=== PATIENT | female | born 1985 | race Caucasian/White ===

== ENCOUNTER → 2017-04-16 | Emergency (ER) | payer MEDICAID, SELFPAY | PROVIDERS: Family Provider Family Medicine | DX: J06.9 Acute upper respiratory infection, unspecified (principal); Z34.82 Encounter for supervision of other normal pregnancy, second trimester | CPT/HCPCS: 87880 ==

== ENCOUNTER → 2017-05-18 14:13 | Outpatient (CLI) | payer MEDICAID, SELFPAY ==
--- NOTE | 2017-05-18 | US_ITS ---
US OB biophysical profile, US OB follow up, US SD Ratio umbilcal artery: Indication: Large for gestational age ITS.REASON: LGA ORDERING PHYSICIAN: Prashant Betancourt MD PATIENT AGE: 31 years FINDINGS: There is a single live fetus present in breech presentation. Placenta is posterior. Average amniotic fluid volume. respiratory and body movement noted. The following parameters are obtained: Average ultrasound age is 33w0d. Estimated due date by ultrasound is 07/06/2017. Estimated weight is 2025g. This is 28 percentile based on last menstrual period BPD: 32w5d OFD: 34w5d HC: 33w3d AC: 32w5d FL: 32w5d heart rate: 134 bpm. HC/AC: 1.05 (0.96-1.11) Cephalic index: 75% (70-86%) FL/BPD: 78% (71-87%) FL/AC: 22% (20-24%) Amniotic fluid index: 13 cm Qualitative AFV: 2 breathing movements: 2 Gross body movements: 2 Tone: 2 Biophysical profile score: 8/8 Doppler evaluation of the umbilical artery: SD ratio: 3.4 Resistive index: 0.71 No obvious anomalies evident. Placenta: posterior IMPRESSION: Live IUP at 33 weeks with estimated weight of 2025 g which is 28th percentile. The fetus is in breech presentation. Estimated due date is 07/06/2017. There has been adequate progression compared to the previous ultrasound of 02/16/2017. Biophysical profile is 8 of 8 with normal amniotic fluid index. The SD ratio an umbilical artery resistive index is upper limits of normal just below the 95th percentile. The placenta is posterior and grade 1
== END ==
PROVIDERS: Family Provider Family Medicine; PCP Family Medicine; Visit Provider Nurse Practitioner Obstetrics & Gynecology
DX: O36.63X1 Maternal care for excessive fetal growth, third trimester, fetus 1 (principal)
CPT/HCPCS: 76816; 76819; 76820

== ENCOUNTER → 2017-06-06 17:51 | Outpatient (REF) | payer MEDICAID, SELFPAY | LOC: LAB 17:51 | PROVIDERS: Visit Provider Nurse Practitioner Obstetrics & Gynecology | DX: Z34.90 Encounter for supervision of normal pregnancy, unspecified, unspecified trimester (principal) | CPT/HCPCS: 86403; 87086 ==

== ENCOUNTER 2017-06-14 00:13 | Inpatient (IN) | payer MEDICAID, SELFPAY ==
[2017-06-13 22:50] VITALS: BP 160/95; PULSE 80; RESP 18; TEMP 36.8; O2SAT 99
[2017-06-13 22:59] VITALS: BMI 55.5
[2017-06-13 23:00] VITALS: BP 159/89; PULSE 80; RESP 18
[2017-06-13 23:19] VITALS: BP 159/89; PULSE 80; RESP 18; TEMP 36.8; O2SAT 99; BMI 55.5
[2017-06-13 23:28] LABS: Microscopic, Urine URINE MICROSCOPIC (MICROSCOPIC)
[2017-06-13 23:31] LABS: Appearance,Urine CLEAR (Clear); Bilirubin,Urine Negative (Negative); Blood, Urine 1+ (Negative); Color,Urine YELLOW (Yellow); Glucose,Urine (UA) Negative (Negative); Ketones,Urine Negative (Negative); Leukocyte Esterase,Urine Negative (Negative); Nitrate,Urine Negative (Negative); Protein,Urine 3+ (Negative); Urobilinogen,Urine 0.2 EU/dl (0.2)
[2017-06-13 23:46] LABS: Bacteria,Urine 1+ /lpf
[2017-06-13 23:47] LABS: Hyaline Casts,Urine Occasional #/lpf (0)
[2017-06-14] VITALS (23 sets, daily range): BP systolic 134–189; BP diastolic 67–103; PULSE 76–96; RESP 13–20; TEMP 36.3–36.8; O2SAT 96–100
[2017-06-14 00:38] LABS: Basophils % 0.3 % (0.1-2.0); Eosinophils # 0.2 K/mm3 (0.0-0.4); Eosinophils % 1.5 % (0.1-12.0); Hemoglobin 14.5 g/dL (12.2-16.2); Lymphocytes # 2.2 K/mm3 (0.7-4.5); Lymphocytes % 20.8 K/mm3 (10-50); Mean Corpuscular HGB Conc 34.6 g/dL (31.8-35.4); Mean Corpuscular Hemoglobin 31.4 pg (27.0-31.2); Mean Corpuscular Volume 90.8 fl (81-99); Mean Platelet Volume 9.3 fl (7.4-10.4); Monocytes # 0.5 K/mm3 (0.1-1.0); Monocytes % 4.7 % (1.7-9.3); Neutrophils # 7.6 K/mm3 (1.8-7.8); Neutrophils % 72.8 % (37.0-80.0); Platelet Count 173 K/mm3 (142-424); Red Blood Count 4.62 M/mm3 (4.20-5.40); Red Cell Distribution Width 14.2 % (11.5-17.5); White Blood Count 10.5 K/mm3 (4.8-10.8)
[2017-06-14 00:45] LABS: Blood Urea Nitrogen 10 mg/dL (7-18); Carbon Dioxide 25 mmol/L (21.0-32.0); Chloride 103 mmol/L (98-107); Creatinine Clearance Estimated 99 mL/min (0-300); Creatinine,Serum 0.62 mg/dL (0.55-1.02); Estimated Glomerular Filt Rate 112 ml/min (>60); GFR (African American) 136 ML/MIN (>60); Glucose 103 mg/dL (74-106); Sodium 136 mmol/L (136-145)
--- NOTE | 2017-06-14 08:12 | HMH.ANESCL ---
[facility] Anesthesia Checklist - Patient Identification Patient Identification: Arm Band - Structural Data Admitted From: Home Planned Operative Procedure/s: repeat c/s Consent for Planned Operative Procedure(s) Verified: Yes Verified Documents: Surgical Consent, History and Physical - NPO Status Verified Time NPO: 00:00 - Additional verifications Anesthesia Reactions: No - Airway Assessment C-Spine Mobility Assessed: Yes TMJ Mobility Assessed: Yes Dentition: Good Dentition - Neurological Assessment Level of Consciousness: Awake, Alert - Anesthesia Plan Anesthesia Risk discussed: Yes Anesthesia Plan: Verified ASA Class: III Anesthesia Type: Spinal [facility] Anesthesia HX I have reviewed the patient's past medical history: Yes Medical History: Reports:: Hypertension Other Medical History: Reports: Other (morbid obesity) Laterality Cases: Left: Other
--- NOTE | 2017-06-14 08:21 | P.HP_ITS ---
OB - H&P: HPI Antepartum - History of Present Illness Chief complaint: Contractions and increased blood pressure - History of Present Criteria for establishing EDC:: LMP confirmed by 1st trimester US care: good care Ultrasounds: normal 1st trimester US, normal mid trimester US Obstetrical complications: gestational diabetes, preeclampsia Medical complications: none Planning to breastfeed?: No H History I have reviewed the patient's past medical history: Yes Medical History: Reports:: Hypertension Other Medical History: Reports: Other (morbid obesity) Laterality Cases: Left: Other - *Social History Smoking Status: Current every day smoker Alcohol Intake: never Para: 2 Review of Systems - Review of Systems Review of systems:: pertinent systems reviewed and negative unless documented below Meds Home Medications Medication Instructions Recorded Confirmed Type ferrous sulfate 325 mg (65 mg 325 mg PO DAILY tab 05/01/17 06/13/17 History iron) tablet hifsskwl-Bc-ymy-Fe-FA 1 tab PO DAILY 05/01/17 06/14/17 History tablet Labetalol HCl [Normodyne 200mg 100 mg PO BID 06/13/17 06/13/17 History tablet] raNITIdine HCl [Ranitidine HCl] 150 mg PO BID 06/13/17 06/13/17 History Allergies Allergy/AdvReac Type Severity Reaction Status Date / Time No Known Allergies Allergy Verified 06/06/17 10:18 OB - H&P: Exam - Physical Exam Vital signs: Temp Pulse Resp BP Pulse Ox 98.2 F 78 18 178/96 99 06/13/17 23:19 06/14/17 02:00 06/14/17 02:00 06/14/17 02:00 06/13/17 23:19 - Constitutional no acute distress OB - Results - Labs Labs: Short CBC 06/14/17 Range/Units 00:30 WBC 10.5 (4.8-10.8) K/mm3 Hgb 14.5 (12.2-16.2) g/dL Hct 42.0 (37.0-47.0) % Plt Count 173 (142-424) K/mm3 BMP 06/14/17 00:30 Sodium 136 Potassium 4.0 Chloride 103 Carbon Dioxide 25 BUN 10 Creatinine 0.62 Glucose 103 Urine 06/13/17 Range/Units 22:40 Urine Color Yellow (Yellow) Urine Appearance Clear (Clear) Urine pH 7.0 (5.0-8.5) Ur Specific [place] 1.020 (1.005-1.030) Urine Protein 3+ (Negative) Urine Glucose (UA) Negative (Negative) OB - A/P Antepartum (1) induced hypertension Current visit: Yes Status: Acute - Additional Plan Plan: expectant management (She has increased blood pressure and proteinuria. She has had a few lates as well as spontaneous decelerations. As result of that we will go ahead with a at 37 weeks.), other Planning to breastfeed?: Yes
[2017-06-14 09:13] LABS: Cord Blood PH 7.25 (7.35-7.45)
--- NOTE | 2017-06-14 09:53 | HMH.OPNOTE ---
Date of procedure: 06/14/17 Pre-op Diagnosis:: Gestational diabetes, maternal morbid obesity, -induced hypertension, previous section, desire for sterilization Post-op diagnosis:: same Procedure performed:: Repeat lower segment transverse section and bilateral salpingectomy Surgeon:: Prashant Betancourt MD Insurance Special Agent(s):: Lizabeth Joiner CREDIT COLLECTIONS REP:: Vitaliy Foster Anesthesia: spinal Estimated blood loss (mL): 600 Clinical Note:: She is a 31-year-old 3 para 2 obese lady who is 37 weeks just. She has been followed for just Beatties as well as induced hypertension. She was started on labetalol and was having contractions yesterday. She came in last night having contractions. Her blood pressure was found to be in the 180s over 90s-100 and as result of noted on magnesium sulfate overnight as well. She had 3+ proteinuria. She was also having an occasional variable deceleration as well as a late deceleration. As result of that we elected to go ahead and deliver her today. Some benefits of surgery as well as the irreversibility of bilateral salpingectomy were discussed with the patient prior to surgery. Operative findings:: She delivered a liveborn male child at 90 6 AM on the morning of June 06, 2017. The baby had Apgars of 8 at 1 minute and 9 at 5 minutes there is a loose nuchal cord ?1. There was thin meconium. The baby looked quite wasted. Operative note:: She was taken to the operating room where epidural anesthesia was found be adequate. She was prepped and draped in normal sterile fashion in the supine position with a leftward tilt. A Hernandez catheter was in the bladder. A Pfannenstiel skin incision was made with knife then carried through to the underlying layer of fascia with cautery. There was significant subcutaneous scar tissue and the pannus was quite large. The fascia was opened in the midline with cautery and extended laterally using Talbert scissors. Chris clamps were applied to the superior aspect of the fascial incision which was tented up and the underlying rectus muscles dissected off using cautery. The Chris clamps were then applied to the inferior aspect of the fascial incision which in a similar fashion was tented up and the underlying rectus muscles dissected off using cautery. The rectus muscles were then in the midline, the peritoneum identified, and entered sharply with Metzenbaum scissors. This incision was then extended superiorly and inferiorly with cautery. We had good visualization of the bladder inferiorly. The bladder peritoneum was then opened in the midline and extended laterally using Metzenbaum scissors. A bladder flap was created digitally. The lower blade of the Anay was inserted so as to push the bladder out of the way. Transverse incision was made through the uterine muscle to the amnion. This incision was then extended laterally using fingers traction. The amnion was entered sharply with knife. There was thin meconium. The 's head was then delivered atraumatically. Loose nuchal cord was easily reduced. This was followed by the anterior shoulder and the rest of the infant's body atraumatically. The oropharynx and nasopharynx were DeLee suctioned. The was then handed off to her Lancaster who assigned Apgars of 8 at 1 minute and 9 at 5 minutes. We then obtained cord blood as well as cord pH. Using gentle traction on the cord and countertraction on the fundus I was able to easily deliver the placenta intact. It had a normal three-vessel cord. The uterus was then cleared of clots and debris and exteriorized from the abdominal cavity. The uterine incision was then closed using running 0 Vicryl suture in a locked fashion. A second layer of the same suture was used to imbricate the second layer. We then performed a bilateral salpingectomy by first grasping the distal end of the right tube and using cautery we cauterized along the mesial salpinx. The tube was then rem
--- NOTE | 2017-06-14 10:01 | P.OP_ITS ---
Date of procedure: 06/14/17 Pre-op Diagnosis:: Gestational diabetes, maternal morbid obesity, -induced hypertension, previous section, desire for sterilization Post-op diagnosis:: same Procedure performed:: Repeat lower segment transverse section and bilateral salpingectomy Surgeon:: Prashant Betancourt MD Technical Project Manager(s):: Lizabeth Joiner AUTO BODY PAINTER:: Vitaliy Foster Anesthesia: spinal Estimated blood loss (mL): 600 Clinical Note:: She is a 31-year-old 3 para 2 obese lady who is 37 weeks just. She has been followed for just Beatties as well as induced hypertension. She was started on labetalol and was having contractions yesterday. She came in last night having contractions. Her blood pressure was found to be in the 180s over 90s-100 and as result of noted on magnesium sulfate overnight as well. She had 3+ proteinuria. She was also having an occasional variable deceleration as well as a late deceleration. As result of that we elected to go ahead and deliver her today. Some benefits of surgery as well as the irreversibility of bilateral salpingectomy were discussed with the patient prior to surgery. Operative findings:: She delivered a liveborn male child at 90 6 AM on the morning of June 06, 2017. The baby had Apgars of 8 at 1 minute and 9 at 5 minutes there is a loose nuchal cord ?1. There was thin meconium. The baby looked quite wasted. Operative note:: She was taken to the operating room where epidural anesthesia was found be adequate. She was prepped and draped in normal sterile fashion in the supine position with a leftward tilt. A Hernandez catheter was in the bladder. A Pfannenstiel skin incision was made with knife then carried through to the underlying layer of fascia with cautery. There was significant subcutaneous scar tissue and the pannus was quite large. The fascia was opened in the midline with cautery and extended laterally using Talbert scissors. Chris clamps were applied to the superior aspect of the fascial incision which was tented up and the underlying rectus muscles dissected off using cautery. The Chris clamps were then applied to the inferior aspect of the fascial incision which in a similar fashion was tented up and the underlying rectus muscles dissected off using cautery. The rectus muscles were then in the midline, the peritoneum identified, and entered sharply with Metzenbaum scissors. This incision was then extended superiorly and inferiorly with cautery. We had good visualization of the bladder inferiorly. The bladder peritoneum was then opened in the midline and extended laterally using Metzenbaum scissors. A bladder flap was created digitally. The lower blade of the Anay was inserted so as to push the bladder out of the way. Transverse incision was made through the uterine muscle to the amnion. This incision was then extended laterally using fingers traction. The amnion was entered sharply with knife. There was thin meconium. The 's head was then delivered atraumatically. Loose nuchal cord was easily reduced. This was followed by the anterior shoulder and the rest of the infant's body atraumatically. The oropharynx and nasopharynx were DeLee suctioned. The was then handed off to her Lancaster who assigned Apgars of 8 at 1 minute and 9 at 5 minutes. We then obtained cord blood as well as cord pH. Using gentle traction on the cord and countertraction on the fundus I was able to easily deliver the placenta intact. It had a normal three-vessel cord. The uterus was then cleared of clots and debris and exteriorized from the abdominal cavity. The uterine incision was then closed using running 0 Vicryl suture in a locked
--- NOTE | 2017-06-14 10:01 | HMH.ANESI ---
[facility] Anesthesia Record Part I Intake, IV Amount: 1,900 Estimated blood loss (mL): 600 Urine output (mL): 300 Blood Pressure: 146/85 SaO2: 96 Pulse Rate: 89 Respiratory Rate: 16 Temperature: 97.4 F Patient is:: Drowsy, Stable
--- NOTE | 2017-06-14 10:02 | HMH.ANESII ---
[facility] Anesthesia Record Part II Discharge Time: 10:30 Destination: Obstetric PACU nurse assessment reviewed?: Yes Patient Condition:: Good Anesthesia Complications:: None
[2017-06-14 12:11] LABS: Magnesium 1.5 mg/dL (1.4-2.2)
--- NOTE | 2017-06-14 15:16 | SUR.OPER ---
Addendum entered by Liz Rueda RN 06/14/17 15:24: Original Note: 0904- 2 lap sponges inserted at this time per MD into abdomen 0906-viable male born at this time 0924-2 lap sponges removed from abdomen per MD 0929-2 lap sponges inserted into abdomen per 0933-2 lap sponges removed from abdomen per
[2017-06-14 16:22] LABS: Hematocrit 38.2 % (37.0-47.0)
[2017-06-14 16:29] LABS: Hemoglobin 12.9 g/dL (12.2-16.2)
[2017-06-15 07:02] LABS: Basophils % 0.1 % (0.1-2.0); Eosinophils # 0.1 K/mm3 (0.0-0.4); Hematocrit 32.5 % (37.0-47.0); Lymphocytes # 1.3 K/mm3 (0.7-4.5); Mean Corpuscular HGB Conc 34.2 g/dL (31.8-35.4); Mean Corpuscular Hemoglobin 31.3 pg (27.0-31.2); Mean Corpuscular Volume 91.5 fl (81-99); Mean Platelet Volume 8.8 fl (7.4-10.4); Monocytes # 0.4 K/mm3 (0.1-1.0); Monocytes % 4.9 % (1.7-9.3); Neutrophils # 6.9 K/mm3 (1.8-7.8); Platelet Count 158 K/mm3 (142-424); Red Blood Count 3.56 M/mm3 (4.20-5.40); Red Cell Distribution Width 14.4 % (11.5-17.5); White Blood Count 8.7 K/mm3 (4.8-10.8)
[2017-06-15 07:17] LABS: Hemoglobin 11.1 g/dL (12.2-16.2)
[2017-06-15 08:00] VITALS: BP 139/64; PULSE 98; RESP 16; TEMP 36.8; O2SAT 97
--- NOTE | 2017-06-15 08:05 | HMH.ACPN2 ---
Internal Medicine - PN: Subj *Date: 06/15/17 *Time: 08:05 Interval history: She is doing well this morning. She is eating and drinking and ambulating. She is bottlefeeding. Her lochia is normal. Exam Vital signs and Labs for Last 24 Hours: Temp Pulse Resp BP Pulse Ox 98.0 F 96 H 20 146/82 99 06/14/17 17:00 06/14/17 17:00 06/14/17 17:00 06/14/17 17:00 06/14/17 17:00 Laboratory Results - last 24 hr 06/14/17 00:30: Magnesium 1.5 06/14/17 09:05: Cord ABG pH 7.25 L 06/14/17 16:05: Hgb 12.9 D, Hct 38.2 06/15/17 06:32: WBC 8.7, RBC 3.56 L, Hgb 11.1 L D, Hct 32.5 L, MCV 91.5, MCH 31.3 H, MCHC 34.2, RDW 14.4, Plt Count 158, MPV 8.8, Neut % (Auto) 79.0, Lymph % (Auto) 15.0, [place] % (Auto) 4.9, Eos % (Auto) 1.0, Baso % (Auto) 0.1, Neut # (Auto) 6.9, Lymph # (Auto) 1.3, [place] # (Auto) 0.4, Eos # (Auto) 0.1, Baso # (Auto) 0.0 06/15/17 06:32: Magnesium 5.0 H D I & O for Last 24 hours: Intake & Output 06/12/17 06/13/17 06/14/17 06/15/17 11:59 11:59 11:59 11:59 Intake Total 1900 / 1900 Output Total 300 / 300 Balance 1600 / 1600 Weight 294 lb - Constitutional no acute distress Assessment and Plan (1) induced hypertension Current visit: Yes Status: Acute Category: Medical Code(s): O13.9 - Gestational [-induced] hypertension without significant proteinuria, unspecified trimester - Assessment and plan all Dx Assessment and Plan for all problems:: She is doing well today. We will plan to send her home in 48 hours.
--- NOTE | 2017-06-15 12:29 | P.DS_ITS ---
General - General Admission date: 06/13/17 Discharge date: 06/15/17 HPI HPI: She is a 31-year-old 3 now para 3 who was 37 weeks gestational age. She came in having some contractions. It was noted that the baby had some variable decelerations as well as occasional late decelerations. Her blood pressure was also significantly elevated despite the fact that she is on labetalol. She is also a gestational diabetic diet controlled. As result of that we elected to perform a repeat lower segment transverse section. Hospital Course Hospital Course: On June 14, 2017 she underwent a repeat lower segment transverse section and bilateral salpingectomy. She has done well postoperatively and has remained afebrile throughout her hospitalization. Her blood pressures were initially elevated however she was on magnesium sulfate for 24 hours and has also been receiving labetalol 200 mg twice daily. Her blood pressures have now normalized. She denies headache, scotomata or epigastric pain. Her blood work is normal . Slightly anemic. Her baby was quite wasted at delivery consistent with her hypertension and -induced hypertension. He has been having difficulty with breathing although just on oxygen but we have been unable to wean the baby off the oxygen. As result of that he is being transferred to [facility]. We will transfer Shaye as well as a compassionate care transfer. Objective Vital signs: Temp Pulse Resp BP Pulse Ox 98.2 F 98 H 16 139/64 97 06/15/17 08:00 06/15/17 08:00 06/15/17 08:00 06/15/17 08:00 06/15/17 08:00 no acute distress Results Labs on day of discharge: Labs from last 24 hours 06/15/17 06/15/17 06/14/17 06:32 06:32 16:05 WBC 8.7 RBC 3.56 L Hgb 11.1 L D 12.9 D Hct 32.5 L 38.2 MCV 91.5 MCH 31.3 H MCHC 34.2 RDW 14.4 Plt Count 158 MPV 8.8 Neut % (Auto) 79.0 Lymph % (Auto) 15.0 [place] % (Auto) 4.9 Eos % (Auto) 1.0 Baso % (Auto) 0.1 Neut # (Auto) 6.9 Lymph # (Auto) 1.3 [place] # (Auto) 0.4 Eos # (Auto) 0.1 Baso # (Auto) 0.0 Magnesium 5.0 H D DS: Diagnosis - Discharge Diagnosis (1) induced hypertension Status: Acute (2) Gestational diabetes Status: Acute Discharge Plan - Patient Discharge Instructions ACTIVITY: No heavy lifting DIET: continue same diet - Follow up Plan Disposition: Xfer Short-Term Hosp Home Medications: Home Medications Medication Instructions Recorded Confirmed Type ferrous sulfate 325 mg (65 mg 325 mg PO DAILY tab 05/01/17 06/13/17 History iron) tablet mifuvhty-Sb-kic-Fe-FA 1 tab PO DAILY 05/01/17 06/14/17 History tablet Labetalol HCl [Normodyne 200mg 100 mg PO BID 06/13/17 06/13/17 History tablet] raNITIdine HCl [Ranitidine HCl] 150 mg PO BID 06/13/17 06/13/17 History Prescriptions/Medication Reconciliation: Continue ivkxwgnz-Tk-gxi-Fe-FA tablet 1 tab PO DAILY ferrous sulfate 325 mg (65 mg iron) tablet 325 mg PO DAILY tab raNITIdine HCl [Ranitidine HCl] 150 mg PO BID Labetalol HCl [Normodyne 200mg tablet] 100 mg PO BID
[2017-06-15 12:59] VITALS: BP 135/73; PULSE 102; RESP 20; TEMP 36.8; O2SAT 100
== END 2017-06-15 15:20 | disposition short-term general hospital (02) | DRG 765 ==
LOC: OBOUT 00:16 → OB 07:16
PROVIDERS: Obstetrics & Gynecology; Admitting Provider Nurse Practitioner Obstetrics & Gynecology; PCP Family Medicine; Referring Provider Nurse Practitioner Obstetrics & Gynecology; Visit Provider Nurse Practitioner Obstetrics & Gynecology
PROC: 0UL70ZZ Occlusion of Bilateral Fallopian Tubes, Open Approach (ICD-10-PCS; CPT 59514; principal; 2017-06-14 08:30)
DX: O14.04 Mild to moderate pre-eclampsia, complicating childbirth (principal); Z68.43 Body mass index [BMI] 50.0-59.9, adult; E66.01 Morbid (severe) obesity due to excess calories; Z37.0 Single live birth; Z3A.37 37 weeks gestation of pregnancy; O24.429 Gestational diabetes mellitus in childbirth, unspecified control; O65.5 Obstructed labor due to abnormality of maternal pelvic organs; O34.211 Maternal care for low transverse scar from previous cesarean delivery; N85.8 Other specified noninflammatory disorders of uterus; O76 Abnormality in fetal heart rate and rhythm complicating labor and delivery; O99.214 Obesity complicating childbirth
CPT/HCPCS: 59514; 58611; 36415; 59025; 80048; 81001; 82800; 83735; 85014; 85018; 85025; 86850; 96360; 96372

== ENCOUNTER 2017-11-02 03:00 | Observation (INO) ==
[2017-11-02 03:41] LABS: Basophils # 0.1 K/mm3 (0-0.2); Basophils % 0.4 % (0.1-2.0); Eosinophils # 0.1 K/mm3 (0.0-0.4); Hematocrit 43.4 % (37.0-47.0); Hemoglobin 14.4 g/dL (12.2-16.2); Lymphocytes # 1.9 K/mm3 (0.7-4.5); Lymphocytes % 15.8 K/mm3 (10-50); Mean Corpuscular HGB Conc 33.2 g/dL (31.8-35.4); Mean Corpuscular Volume 87.6 fl (81-99); Monocytes # 0.6 K/mm3 (0.1-1.0); Monocytes % 4.9 % (1.7-9.3); Neutrophils # 9.1 K/mm3 (1.8-7.8); Neutrophils % 77.8 % (37.0-80.0); Platelet Count 252 K/mm3 (142-424); Red Blood Count 4.96 M/mm3 (4.20-5.40); Red Cell Distribution Width 14.2 % (11.5-17.5); White Blood Count 11.7 K/mm3 (4.8-10.8)
[2017-11-02 03:53] LABS: Anion Gap 13.8 mEq/L (5-15); Bilirubin,Direct 0.2 mg/dL (0.0-0.2); Bilirubin,Total 1.2 mg/dL (0.2-1.0); C-Reactive Protein 1.7 mg/L (0.0-0.9); Calcium 10.1 mg/dL (8.5-10.1); Potassium 3.8 mmoL/L (3.5-5.1); Total Protein,Serum 8.1 gm/dL (6.4-8.2)
[2017-11-02 04:56] LABS: Microscopic, Urine URINE MICROSCOPIC (MICROSCOPIC)
[2017-11-02 04:57] LABS: Appearance,Urine CLEAR (Clear); Bilirubin,Urine Negative (Negative); Blood, Urine Negative (Negative); Color,Urine YELLOW (Yellow); Glucose,Urine (UA) Negative (Negative); Ketones,Urine Negative (Negative); Leukocyte Esterase,Urine Negative (Negative); Protein,Urine Negative (Negative); Urobilinogen,Urine 0.2 EU/dl (0.2)
--- NOTE | 2017-11-02 04:59 | Emergency Department Note ---
ED Disposition Clinical Impression: Abdominal pain Qualifiers: Abdominal location: right lower quadrant Qualified Code(s): R10.31 - Right lower quadrant pain Cholelithiasis Qualifiers: Cholelithiasis location: gallbladder Cholecystitis presence: without cholecystitis Biliary obstruction: without biliary obstruction Qualified Code(s) : K80.20 - Calculus of gallbladder without cholecystitis without obstruction Disposition: Admitted as Observation Condition on Discharge: Good - Critical Care Critical Care Time: No Attestation: On 11/02/17, the high probability of a clinically significant, sudden or life threatening deterioration of the following system(s) required my full and direct attention, intervention and personal management. The time I documented below is in addition to time spent performing reported procedures but includes the following listed in this critical care notation. Medical Decision Making - Medical Records Medical records reviewed: Yes: I reviewed the patient's medical records. - Sinan Inquiry Pt receiving controlled substance: No Vital Signs: 11/02/17 03:13 Temperature 98.1 F Temperature Source Oral Pulse Rate [Right Radial] 115 H Respiratory Rate 24 Blood Pressure [Right Arm] 130/82 Blood Pressure Mean [Right Arm] 98 Blood Pressure Source [Right Arm] Automatic Cuff Blood Pressure Position [Right Arm] Sitting 02 Sat by Pulse Oximetry 98 Oxygen Delivery Method Room Air - Lab Data Lab results reviewed: Yes: I reviewed the patient's lab results. Lab Results 11/02/17 03:25: Amylase 39 11/02/17 03:25: WBC 11.7 H, RBC 4.96, Hgb 14.4, Hct 43.4, MCV 87.6, MCH 29.0, MCHC 33.2, RDW 14.2, Plt Count 252, MPV 8.0, Neut % (Auto) 77.8, Lymph % (Auto) 15.8, [place] % (Auto) 4.9, Eos % (Auto) 1.0, Baso % (Auto) 0.4, Neut # (Auto) 9.1 H, Lymph # (Auto) 1.9, [place] # (Auto) 0.6, Eos # (Auto) 0.1, Baso # (Auto) 0.1 11/02/17 03:25: Sodium 135 L, Potassium 3.8, Chloride 98, Carbon Dioxide 27, Anion Gap 13.8, BUN 12, Creatinine 1.04 H, Estimated Creat Clear 59, Estimated GFR 61, Est GFR ( Amer) 74, Glucose 156 H, Calcium 10.1, Total Bilirubin 1.2 H, Direct Bilirubin 0.2, Indirect Bilirubin 1.0 H, AST 28, ALT 61, Alkaline Phosphatase 87, C-Reactive Protein 1.7 H, Total Protein 8.1, Albumin 4.0, Lipase 84 11/02/17 03:25: Lactic Acid 2.5 H 11/02/17 03:25: ESR 43 H 11/02/17 04:44: Urine Color Yellow, Urine Appearance Clear, Urine pH 6.0, Ur Specific [place] 1.010, Urine Protein Negative, Urine Glucose (UA) Negative, Urine Ketones Negative, Urine Blood Negative, Urine Nitrate Negative, Urine Bilirubin Negative, Urine Urobilinogen 0.2, Ur Leukocyte Esterase Negative, Urine WBC Occasional, Ur Squamous Epith Cells Occasional, Urine Bacteria Trace Result diagrams: 11/02/17 03:25 11/02/17 03:25 Orders (Tests/Meds): ED MEDICATIONS Discontinued Medications Generic Name Dose Route Start Last Admin Trade Name Kwesi PRN Reason Stop Dose Admin Sodium Chloride 1,000 mls @ 999 mls/hr 11/02/17 03:30 11/02/17 03:27 Sod Chlor 0.9% 1000ml Bag IV 11/02/17 04:30 999 mls/hr .Q1H1M BELEN Administration Ketorolac Tromethamine 30 mg 11/02/17 03:25 11/02/17 03:27 Toradol 30mg/Ml Vial IV 11/02/17 03:26 30 mg ONCE ONE Administration Ondansetron HCl 4 mg 11/02/17 03:25 11/02/17 03:27 Zofran 4mg/2ml Vial IV 11/02/17 03:26 4 mg ONCE ONE Administration ORDERS Category Date Time Status CT abdomen pelvis wo con Stat Cat Scan 11/02/17 03:25 Taken - CT Data CT Scan: Abdomen, Pelvis Time Received: 06:[address] Reviewed: Yes: I have viewed the radiologist's interpretation Preliminary Findings: Abnormal (see report) - Physician Consults Physician Consulted: sarah Reason -: Admission Additional Consult: misha Reason -: Pt condition Nausea/Vomiting/Diarrhea HPI - General Chief complaint: Abdominal Pain Stated complaint: Abdominal Pain and vomiting Time Seen by Provider: 11/02/17 03:15 Mode of Arrival: Ambulatory Source of Information: Patient, Medical Record Limitations: No Limitations Description of Symptoms (Recalled from ER Triage Doc. by RN): umbilical pain, vomiting since 1900, no bm since yesterday afternoon - History of Present Illness HPI Narrative: acute abd pain which is mid abd with nausea and vomiting which started this pm MD complaint: nausea, vomiting, abdominal pain Onset (ago): hour(s) Associated Abdominal Pain: Yes Location of pain: periumbilical, RLQ Severity: moderate Quality: cramping Associated symptoms: denies other symptoms - Related Data Home Medications Medication Instructions Recorded Confirmed No Known Home Medications 11/02/17 11/02/17 Allergies Allergy/AdvReac Type Severity Reaction Status Date / Time No Known Allergies Allergy Verified 06/26/17 10:27 [facility] History I have reviewed the patient's past medical history: Yes Medical History: Reports:: Hypertension Denies:: Anxiety, Cancer, Depression, Diabetes Mellitus Type 1, Diabetes Mellitus Type 2 (gestational), MRSA Other Medical History: Reports: Other Laterality Cases: Left: Other Other Surgeries: Yes: Amputation: No Fractures: No Comment: left eye - Social History Smoking Status: Current every day smoker Tobacco Type: cigarettes # Packs/Day (cigarettes): 1 Alcohol Intake: never Substance Use Type: denies use - Psychiatric History Expresses thoughts of harming self/others: None Suicide Plan Description: No Plan Pschychiatric History:: Denies:: Anxiety, Depression Family Hx:: Cancer, Diabetes, Stroke, Heart Attack, Asthma, Hypertension, Hyperlipidemia ROS Obtained: Yes All systems reviewed & no additional complaints - Constitutional Constitutional: Denies fever(s) - Eyes Eyes: Denies change in vision - ENT Ears, Nose, Mouth, and Throat: Denies sore throat - Cardiovascular Cardiovascular: Denies chest pain - Respiratory Respiratory: No cough - Gastrointestinal Gastrointestingal: Reports: as per HPI, abdominal pain, nausea, vomiting. Denies: diarrhea - Genitourinary Female Genitourinary: Denies hematuria - Musculoskeletal Musculoskeletal: Denies joint pain, Denies joint swelling - Integumentary/Breasts Skin/Breast: Denies rash - Neurologic Neurologic: Denies seizure-like activity Physical Exam - General General appearance: in no apparent distress - Head Head exam: normocephalic - Eye Eye exam: Present: PERRL, EOMI - ENT ENT exam: Present: mucous membranes moist - Neck Neck exam: Present: trachea midline - Respiratory Respiratory exam: Present: normal lung sounds bilaterally. Absent: respiratory distress - Cardiovascular Cardiovascular exam: Present: regular rate. Absent: systolic murmur - Abdominal Exam Abdominal exam: Present: soft, tenderness, tenderness at [place]Bur[place]'s Point Abdominal tenderness: Present: epigastrium - Extremities Exam Extremities exam: Present: full ROM - Neurological Exam Neurological exam: Present: alert, oriented X3, CN II-XII intact - Psychiatric Psychiatric exam: Present: normal affect - Skin Skin exam: Absent: rash
[2017-11-02 05:16] LABS: Bacteria,Urine Trace /lpf; Squamous Epithelial Cell,Urine Occasional #/hpf (0-5); WBC,Urine Occasional #/hpf (0-3)
--- NOTE | 2017-11-02 07:04 | Consult Report ---
*Admission Date: 11/02/17 *Chief complaint: RLQ pain *History of present illness: This is a 32-year-old female seen in consultation from Dr. Jasmine for evaluation regarding possible appendicitis. She presented emergency department with complaints of abdominal pain that initiated in the periumbilical region. The majority of her pain and tenderness migrated to the right lower quadrant. No fevers. Appetite is poor. She was found to have mild leukocytosis and radiographic evidence of possible early appendicitis. The surgical service was consulted. Review of Systems - Constitutional Reports anorexia - Eyes Denies change in vision - *Cardiovascular Denies chest pain - *Respiratory Denies cough - *Gastrointestinal Reports abdominal pain, Reports nausea - *Genitourinary Denies abnormal periods - *Neurologic Denies seizure-like activity - Hematologic/Lymphatic Denies easy bleeding [facility] History Medical History: Reports:: Hypertension Denies:: Anxiety, Cancer, Depression, Diabetes Mellitus Type 1, Diabetes Mellitus Type 2 (gestational), MRSA Other Medical History: Reports: Other Laterality Cases: Left: Other Other Surgeries: Yes: Amputation: No Fractures: No - *Social History Smoking Status: Current every day smoker Tobacco Type: cigarettes # Packs/Day (cigarettes): 1 Alcohol Intake: never Substance Use Type: denies use - Psychiatric History Expresses thoughts of harming self/others: None Suicide Plan Description: No Plan Pschychiatric History:: Denies:: Anxiety, Depression *Family Hx:: Cancer, Diabetes, Stroke, Heart Attack, Asthma, Hypertension, Hyperlipidemia Meds Home Medications Medication Instructions Recorded Confirmed Type No Known Home Medications 11/02/17 11/02/17 History Allergies Allergy/AdvReac Type Severity Reaction Status Date / Time No Known Allergies Allergy Verified 06/26/17 10:27 Exam Vital signs and Labs for Last 24 Hours: Temp Pulse Resp BP Pulse Ox 98.1 F 79 18 143/77 95 11/02/17 06:41 11/02/17 06:41 11/02/17 06:41 11/02/17 06:41 11/02/17 06:41 Laboratory Results - last 24 hr 11/02/17 03:25: Amylase 39 11/02/17 03:25: WBC 11.7 H, RBC 4.96, Hgb 14.4, Hct 43.4, MCV 87.6, MCH 29.0, MCHC 33.2, RDW 14.2, Plt Count 252, MPV 8.0, Neut % (Auto) 77.8, Lymph % (Auto) 15.8, [place] % (Auto) 4.9, Eos % (Auto) 1.0, Baso % (Auto) 0.4, Neut # (Auto) 9.1 H, Lymph # (Auto) 1.9, [place] # (Auto) 0.6, Eos # (Auto) 0.1, Baso # (Auto) 0.1 11/02/17 03:25: Sodium 135 L, Potassium 3.8, Chloride 98, Carbon Dioxide 27, Anion Gap 13.8, BUN 12, Creatinine 1.04 H, Estimated Creat Clear 59, Estimated GFR 61, Est GFR ( Amer) 74, Glucose 156 H, Calcium 10.1, Total Bilirubin 1.2 H, Direct Bilirubin 0.2, Indirect Bilirubin 1.0 H, AST 28, ALT 61, Alkaline Phosphatase 87, C-Reactive Protein 1.7 H, Total Protein 8.1, Albumin 4.0, Lipase 84 11/02/17 03:25: Lactic Acid 2.5 H 11/02/17 03:25: ESR 43 H 11/02/17 04:44: Urine Color Yellow, Urine Appearance Clear, Urine pH 6.0, Ur Specific [place] 1.010, Urine Protein Negative, Urine Glucose (UA) Negative, Urine Ketones Negative, Urine Blood Negative, Urine Nitrate Negative, Urine Bilirubin Negative, Urine Urobilinogen 0.2, Ur Leukocyte Esterase Negative, Urine WBC Occasional, Ur Squamous Epith Cells Occasional, Urine Bacteria Trace I & O for Last 24 hours: Intake & Output 10/30/17 10/31/17 11/01/17 11/02/17 11:59 11:59 11:59 11:59 Weight 270 lb - Constitutional no acute distress - *Routine Cardiovascular Exam Present: RRR - *Routine Abdominal Exam Present: soft, tenderness Comments: RLQ TTP Results - Labs 11/02/17 03:25 11/02/17 03:25 Laboratory Results - last 24 hr 11/02/17 03:25: Amylase 39 11/02/17 03:25: WBC 11.7 H, RBC 4.96, Hgb 14.4, Hct 43.4, MCV 87.6, MCH 29.0, MCHC 33.2, RDW 14.2, Plt Count 252, MPV 8.0, Neut % (Auto) 77.8, Lymph % (Auto) 15.8, [place] % (Auto) 4.9, Eos % (Auto) 1.0, Baso % (Auto) 0.4, Neut # (Auto) 9.1 H, Lymph # (Auto) 1.9, [place] # (Auto) 0.6, Eos # (Auto) 0.1, Baso # (Auto) 0.1 11/02/17 03:25: Sodium 135 L, Potassium 3.8, Chloride 98, Carbon Dioxide 27, Anion Gap 13.8, BUN 12, Creatinine 1.04 H, Estimated Creat Clear 59, Estimated GFR 61, Est GFR ( Amer) 74, Glucose 156 H, Calcium 10.1, Total Bilirubin 1.2 H, Direct Bilirubin 0.2, Indirect Bilirubin 1.0 H, AST 28, ALT 61, Alkaline Phosphatase 87, C-Reactive Protein 1.7 H, Total Protein 8.1, Albumin 4.0, Lipase 84 11/02/17 03:25: Lactic Acid 2.5 H 11/02/17 03:25: ESR 43 H 11/02/17 04:44: Urine Color Yellow, Urine Appearance Clear, Urine pH 6.0, Ur Specific [place] 1.010, Urine Protein Negative, Urine Glucose (UA) Negative, Urine Ketones Negative, Urine Blood Negative, Urine Nitrate Negative, Urine Bilirubin Negative, Urine Urobilinogen 0.2, Ur Leukocyte Esterase Negative, Urine WBC Occasional, Ur Squamous Epith Cells Occasional, Urine Bacteria Trace - Imaging CT scan - abdomen: report reviewed, image reviewed CT scan - pelvis: report reviewed, image reviewed Assessment and Plan (1) Appendicitis Current visit: Yes Status: Acute Category: Surgical Code(s): K37 - Unspecified appendicitis Continue antibiotics Laparoscopic appendectomy-I have discussed the risks and benefits and she agrees to proceed
--- NOTE | 2017-11-02 07:38 | History & Physical Report ---
*Admission Date: 11/02/17 *Chief complaint: Abdominal pain and vomiting *History of present illness: This is a 32-year-old female seen in ER for evaluation of acute onset abdominal pain followed by unrelenting vomiting.. She presented emergency department with complaints of abdominal pain that initiated in the periumbilical region. The majority of her pain and tenderness migrated to the right lower quadrant. No fevers. Appetite is poor. She was found to have mild leukocytosis and radiographic evidence of possible early appendicitis. [facility] History I have reviewed the patient's past medical history: Yes Medical History: Reports:: Hypertension Denies:: Anxiety, Cancer, Depression, Diabetes Mellitus Type 1, Diabetes Mellitus Type 2 (gestational), MRSA Other Medical History: Reports: Other Laterality Cases: Left: Other Other Surgeries: Yes: , Tubal Ligation Amputation: No Fractures: No - *Social History Educational Level: Completed High School Smoking Status: Current every day smoker Tobacco Type: cigarettes # Packs/Day (cigarettes): 1 #Yrs smoked (if former smoker): 15 Alcohol Intake: never Substance Use Type: denies use Occupational Status: unemployed Housing: house Household Members: significant other, children - Psychiatric History Expresses thoughts of harming self/others: None Suicide Plan Description: No Plan Pschychiatric History:: Denies:: Anxiety, Depression *Family Hx:: Cancer, Diabetes, Stroke, Heart Attack, Asthma, Hypertension, Hyperlipidemia Review of Systems - Review of Systems Review of systems:: pertinent systems reviewed and negative unless documented below - *Neurologic Denies seizure-like activity Meds Home Medications Medication Instructions Recorded Confirmed Type No Known Home Medications 11/02/17 11/02/17 History Allergies Allergy/AdvReac Type Severity Reaction Status Date / Time No Known Allergies Allergy Verified 06/26/17 10:27 Exam Vital signs and Labs for Last 24 Hours: Temp Pulse Resp BP Pulse Ox 98.1 F 79 18 143/77 95 11/02/17 06:41 11/02/17 06:41 11/02/17 06:41 11/02/17 06:41 11/02/17 06:41 Laboratory Results - last 24 hr 11/02/17 03:25: Amylase 39 11/02/17 03:25: WBC 11.7 H, RBC 4.96, Hgb 14.4, Hct 43.4, MCV 87.6, MCH 29.0, MCHC 33.2, RDW 14.2, Plt Count 252, MPV 8.0, Neut % (Auto) 77.8, Lymph % (Auto) 15.8, [place] % (Auto) 4.9, Eos % (Auto) 1.0, Baso % (Auto) 0.4, Neut # (Auto) 9.1 H, Lymph # (Auto) 1.9, [place] # (Auto) 0.6, Eos # (Auto) 0.1, Baso # (Auto) 0.1 11/02/17 03:25: Sodium 135 L, Potassium 3.8, Chloride 98, Carbon Dioxide 27, Anion Gap 13.8, BUN 12, Creatinine 1.04 H, Estimated Creat Clear 59, Estimated GFR 61, Est GFR ( Amer) 74, Glucose 156 H, Calcium 10.1, Total Bilirubin 1.2 H, Direct Bilirubin 0.2, Indirect Bilirubin 1.0 H, AST 28, ALT 61, Alkaline Phosphatase 87, C-Reactive Protein 1.7 H, Total Protein 8.1, Albumin 4.0, Lipase 84 11/02/17 03:25: Lactic Acid 2.5 H 11/02/17 03:25: ESR 43 H 11/02/17 04:44: Urine Color Yellow, Urine Appearance Clear, Urine pH 6.0, Ur Specific [place] 1.010, Urine Protein Negative, Urine Glucose (UA) Negative, Urine Ketones Negative, Urine Blood Negative, Urine Nitrate Negative, Urine Bilirubin Negative, Urine Urobilinogen 0.2, Ur Leukocyte Esterase Negative, Urine WBC Occasional, Ur Squamous Epith Cells Occasional, Urine Bacteria Trace I & O for Last 24 hours: Intake & Output 10/30/17 10/31/17 11/01/17 11/02/17 11:59 11:59 11:59 11:59 Weight 270 lb Narrative: Patient is awake alert sitting up in bed and does not appear to be in any pain. HEENT exam is grossly normal. Lungs are clear to auscultation. Heart has a regular rate and rhythm. Abdomen soft with diffuse tenderness but more significant in the right lower quadrant. Patient moves all extremities and has no focal neurologic deficit. H&P: Result - Labs Labs: Short CBC 11/02/17 Range/Units 03:25 WBC 11.7 H (4.8-10.8) K/mm3 Hgb 14.4 (12.2-16.2) g/dL Hct 43.4 (37.0-47.0) % Plt Count 252 (142-424) K/mm3 BMP 11/02/17 03:25 Sodium 135 L Potassium 3.8 Chloride 98 Carbon Dioxide 27 BUN 12 Creatinine 1.04 H Glucose 156 H Calcium 10.1 Liver Function 11/02/17 Range/Units 03:25 Total Bilirubin 1.2 H (0.2-1.0) mg/dL Direct Bilirubin 0.2 (0.0-0.2) mg/dL AST 28 (15-37) U/L ALT 61 (12-78) U/L Alkaline Phosphatase 87 (46-116) U/L Albumin 4.0 (3.4-5.0) gm/dL Urine 11/02/17 Range/Units 04:44 Urine Color Yellow (Yellow) Urine Appearance Clear (Clear) Urine pH 6.0 (5.0-8.5) Ur Specific [place] 1.010 (1.005-1.030) Urine Protein Negative (Negative) Urine Glucose (UA) Negative (Negative) Assessment and Plan (1) Appendicitis Current visit: Yes Status: Acute Category: Surgical Code(s): K37 - Unspecified appendicitis - Assessment and plan all Dx Assessment and Plan for all problems:: Management per Dr. Murray.
--- NOTE | 2017-11-02 07:43 | Pharmacy Consult Notes ---
[facility] Pharmacy VTE Monitoring - Patient Demographics Admission date: 11/02/17 Report Date: 11/02/17 Time: 07:43 Allergies/Adverse Reactions: Patient Allergies No Known Allergies Allergy (Verified 06/26/17 10:27) Height: 1.55 m Weight: 122.47 kg Patient Problems: Current Active Problems Abdominal pain (Acute) Cholelithiasis (Acute) Appendicitis (Acute) - VTE Risk Labs: VTE Related Lab Results Hgb 14.4 g/dL (12.2-16.2) 11/02/17 03:25 Hct 43.4 % (37.0-47.0) 11/02/17 03:25 Plt Count 252 K/mm3 (142-424) 11/02/17 03:25 BUN 12 mg/dL (7-18) 11/02/17 03:25 Creatinine 1.04 mg/dL (0.55-1.02) H 11/02/17 03:25 Estimated Creat Clear 59 mL/min (0-300) 11/02/17 03:25 Was VTE Risk Assessment Performed: No VTE Score: 2 VTE Risk Level: Very Low Risk - Prophylaxis VTE Prophylaxis Ordered?: Yes Types of VTE Prophylaxis: TEDS Knee High Location of Applied Device: Bilateral Lower Extremeties - VTE Diagnosis Confirmed Treatment or plan recommended: Continue Current Treatment
--- NOTE | 2017-11-02 14:32 | Operative Note ---
Date of procedure: 11/02/17 Pre-op Diagnosis:: Appendicitis Post-op Diagnosis:: Same Procedure performed:: Laparoscopic appendectomy Surgeon:: David Dumont MD Anesthesia: GETA Estimated blood loss (mL): 15 Operative findings:: Incisional hernias just to the left and just below the umbilicus Severe adhesions of omentum to anterior abdominal wall Inflamed/enlarged appendix with no sign of perforation or suppuration Operative note:: After informed consent was obtained, the patient was taken to the operating room and placed in the supine position. General anesthesia was induced and her abdomen was prepped and draped in a sterile fashion. After infiltration with local anesthetic a small incision was made just below the umbilicus. A Veress needle was placed in position; however, release of tension was not obtained and the decision was made to forego multiple attempts at this site. A small stab incision was made in the left upper quadrant. The Veress needle was placed in position. The abdomen was insufflated. A 12 mm optical trocar was utilized to enter at the infraumbilical site. A second 5 mm trocar was placed in the left upper quadrant. Dense adhesions of the omentum along the anterior abdominal wall are noted. The adhesions essentially started at the infraumbilical entry site and proceeded throughout the lower abdomen/pelvis. Blunt dissection was utilized to take down these adhesions. A 5 mm trochars placed in the lower left flank and a 5 mm trocar was placed in the suprapubic position. Evaluation also revealed a "[place] cheese" defect just to the left and to the left/below the umbilicus (prior incision). The appendix was carefully elevated. The appendix was enlarged and inflamed, but no sign of perforation or suppuration noted. A window was made in the mesoappendix at the base. A DUC stapler was utilized to take the appendix at the base. The DUC stapler was also utilized to take the mesoappendix. The appendix was placed in a retrieval bag and removed through the infraumbilical trocar site. The right lower quadrant was thoroughly irrigated. No active bleeding or sign of injury was noted. Fascia at the infraumbilical trocar site was reapproximated utilizing the madina-close device. All wounds were irrigated and skin was closed with 4-0 Monocryl in a subcuticular fashion. Dressings were applied. The patient was transferred to recovery in stable condition after extubation. Condition: stable Disposition: PACU Specimens:: Appendix Complications:: No immediate
--- NOTE | 2017-11-02 14:39 | Progress Note ---
[facility] Anesthesia Record Part II Discharge Time: 15:05 Destination: 2nd floor PACU nurse assessment reviewed?: Yes Patient Condition:: Good Anesthesia Complications:: None
--- NOTE | 2017-11-02 14:39 | Progress Note ---
[facility] Anesthesia Checklist - Patient Identification Patient Identification: Arm Band - Structural Data Admitted From: Home Planned Operative Procedure/s: laparoscopic appendectomy Consent for Planned Operative Procedure(s) Verified: Yes Verified Documents: Surgical Consent, History and Physical - NPO Status Verified Time NPO: 00:00 - Additional verifications Anesthesia Reactions: No - Airway Assessment C-Spine Mobility Assessed: Yes (mp2) TMJ Mobility Assessed: Yes Dentition: Good Dentition - Neurological Assessment Level of Consciousness: Awake, Alert - Anesthesia Plan Anesthesia Risk discussed: Yes Anesthesia Plan: Verified ASA Class: III Anesthesia Type: General [facility] Anesthesia HX I have reviewed the patient's past medical history: Yes Medical History: Reports:: Hypertension Denies:: Anxiety, Cancer, Depression, Diabetes Mellitus Type 1, Diabetes Mellitus Type 2 (gestational), MRSA Other Medical History: Reports: Other Laterality Cases: Left: Other Other Surgeries: Yes: , Tubal Ligation Amputation: No Fractures: No *Family Hx:: Cancer, Diabetes, Stroke, Heart Attack, Asthma, Hypertension, Hyperlipidemia
--- NOTE | 2017-11-02 14:40 | Progress Note ---
[facility] Anesthesia Record Part I Intake, IV Amount: 1,200 Estimated blood loss (mL): 10 Urine output (mL): 50 Blood Pressure: 151/78 SaO2: 97 Pulse Rate: 81 Respiratory Rate: 16 Temperature: 97.6 F Patient is:: Drowsy, Stable Stable to PACU at:: 14:35
[2017-11-03 06:06] LABS: Basophils % 0.1 % (0.1-2.0); Eosinophils # 0.1 K/mm3 (0.0-0.4); Eosinophils % 0.5 % (0.1-12.0); Hematocrit 34.9 % (37.0-47.0); Hemoglobin 11.8 g/dL (12.2-16.2); Lymphocytes # 1.5 K/mm3 (0.7-4.5); Lymphocytes % 14.7 K/mm3 (10-50); Mean Corpuscular HGB Conc 33.7 g/dL (31.8-35.4); Mean Corpuscular Hemoglobin 29.9 pg (27.0-31.2); Mean Corpuscular Volume 88.7 fl (81-99); Mean Platelet Volume 7.5 fl (7.4-10.4); Monocytes # 0.5 K/mm3 (0.1-1.0); Monocytes % 5.2 % (1.7-9.3); Neutrophils # 7.9 K/mm3 (1.8-7.8); Neutrophils % 79.5 % (37.0-80.0); Platelet Count 219 K/mm3 (142-424); Red Blood Count 3.94 M/mm3 (4.20-5.40); Red Cell Distribution Width 14.7 % (11.5-17.5)
--- NOTE | 2017-11-03 06:46 | Progress Note ---
Subjective Patient reports: no new complaints, no flatus Exam Vital signs and Labs for Last 24 Hours: Temp Pulse Resp BP Pulse Ox 97.9 F 69 16 124/74 98 11/03/17 04:00 11/03/17 04:00 11/03/17 04:00 11/03/17 04:00 11/03/17 04:00 Laboratory Results - last 24 hr 11/02/17 08:15: Lactic Acid Fup @ 4Hr 1.7 11/02/17 12:30: Urine Color Yellow, Urine Appearance Clear, Urine pH 6.0, Ur Specific [place] 1.015, Urine Protein Negative, Urine Glucose (UA) Negative, Urine Ketones Negative, Urine Blood Negative, Urine Nitrate Negative, Urine Bilirubin Negative, Urine Urobilinogen 0.2, Ur Leukocyte Esterase Negative, Urine RBC Occasional, Urine WBC Occasional, Ur Squamous Epith Cells 20-50, Urine Bacteria 1+ 11/03/17 05:30: WBC 10.0, RBC 3.94 L, Hgb 11.8 L, Hct 34.9 L, MCV 88.7, MCH 29.9 , MCHC 33.7, RDW 14.7, Plt Count 219, MPV 7.5, Neut % (Auto) 79.5, Lymph % (Auto ) 14.7, [place] % (Auto) 5.2, Eos % (Auto) 0.5, Baso % (Auto) 0.1, Neut # (Auto) 7.9 H, Lymph # (Auto) 1.5, [place] # (Auto) 0.5, Eos # (Auto) 0.1, Baso # (Auto) 0.0 I & O for Last 24 hours: Intake & Output 10/31/17 11/01/17 11/02/17 11/03/17 11:59 11:59 11:59 11:59 Intake Total 3180 / 3180 Output Total 125 / 125 Balance 3055 / 3055 Weight 270 lb 277 lb - Constitutional no acute distress - *Routine Abdominal Exam Present: soft Comments: dressings intact and dry. no erythema. Progress Note: A&P (1) Appendicitis Status: Acute Assessment and plan: overall, doing well s/p lap appy slowly advance diet likely d/c home soon RTC next week for re-evaluation Current Visit: Yes
--- NOTE | 2017-11-03 07:02 | Discharge Summary ---
General - General Admission date:: 11/02/17 Discharge date: 11/03/17 HPI HPI: This is a 32-year-old female seen in ER for evaluation of acute onset abdominal pain followed by unrelenting vomiting.. She presented emergency department with complaints of abdominal pain that initiated in the periumbilical region. The majority of her pain and tenderness migrated to the right lower quadrant. No fevers. Appetite is poor. She was found to have mild leukocytosis and radiographic evidence of possible early appendicitis. Hospital Course Hospital Course: Patient was admitted and surgical consultation was obtained. Dr. Dumont evaluated the patient and felt like CT scan and exam was consistent with an early appendicitis. Patient was taken to the operating room for appendectomy on the afternoon of the . Patient had lots of adhesions and omental hernias from prior surgeries (C-sections). Postoperatively patient was monitored and was given Zosyn. By the evening of surgery patient was ambulating in the hallways without difficulty. Patient was placed on clear liquids postoperatively and tolerated these. On the morning of the her diet was advanced to full liquids. Dr. Murray thoroughly explained to the patient the surgery and surgical findings. She has been counseled to be aware of any minor changes in her condition that could signal complications. After patient tolerated a full liquid diet she was discharged home. Patient will follow up with Dr. Murray per his instructions. No formal follow-up with me as required but patient has been instructed to call the office should problems arise Objective Vital signs: Temp Pulse Resp BP Pulse Ox 97.9 F 69 16 124/74 98 11/03/17 04:00 11/03/17 04:00 11/03/17 04:00 11/03/17 04:00 11/03/17 04:00 Results Labs on day of discharge: Labs from last 24 hours 11/03/17 11/02/17 11/02/17 05:30 12:30 08:15 WBC 10.0 RBC 3.94 L Hgb 11.8 L Hct 34.9 L MCV 88.7 MCH 29.9 MCHC 33.7 RDW 14.7 Plt Count 219 MPV 7.5 Neut % (Auto) 79.5 Lymph % (Auto) 14.7 [place] % (Auto) 5.2 Eos % (Auto) 0.5 Baso % (Auto) 0.1 Neut # (Auto) 7.9 H Lymph # (Auto) 1.5 [place] # (Auto) 0.5 Eos # (Auto) 0.1 Baso # (Auto) 0.0 Lactic Acid Fup @ 4Hr 1.7 Urine Color Yellow Urine Appearance Clear Urine pH 6.0 Ur Specific [place] 1.015 Urine Protein Negative Urine Glucose (UA) Negative Urine Ketones Negative Urine Blood Negative Urine Nitrate Negative Urine Bilirubin Negative Urine Urobilinogen 0.2 Ur Leukocyte Esterase Negative Urine RBC Occasional Urine WBC Occasional Ur Squamous Epith Cells 20-50 Urine Bacteria 1+ DS: Diagnosis - Discharge Diagnosis (1) Appendicitis Status: Acute Discharge Plan - Patient Discharge Instructions ACTIVITY: Continue current activity DIET: continue same diet Patient Instructions: Surgical Site Infection - Follow up Plan Follow up with: David Dumont MD [Staff Physician] - 11/07/17 Disposition: Home, Self-Long Term Medications: Home Medications Medication Instructions Recorded Confirmed Type No Known Home Medications 11/02/17 11/02/17 History Prescriptions/Medication Reconciliation: New Hydrocod/Acet 5/325 mg [[place] 5/325mg tablet] 1 tab PO Q6HP PRN #20 tab PRN Reason: Severe Pain Ibuprofen [Ibuprofen 600mg Tab] 600 mg PO Q6HP PRN #60 tab PRN Reason: Mild To Moderate Pain No Action No Known Home Medications
[2017-11-03 12:06] VITALS: BP 132/70
== END 2017-11-03 14:00 | disposition home or self-care (01) ==
LOC: ER 03:00 → ICU 03:00
PROVIDERS: ADMIT Internal Medicine Adolescent Medicine; ATTEND Family Medicine

== ENCOUNTER → 2019-06-27 10:04 | Outpatient (CLI) | payer OTHER, SELFPAY ==
[2019-06-27 10:29] LABS: Basophils % 0.3 % (0.1-2.0); Eosinophils # 0.1 K/mm3 (0.0-0.4); Eosinophils % 0.9 % (0.1-12.0); Hematocrit 38.6 % (37.0-47.0); Hemoglobin 13.1 g/dL (12.2-16.2); Lymphocytes # 1.5 K/mm3 (0.7-4.5); Lymphocytes % 25.8 % (10-50); Mean Corpuscular HGB Conc 34.1 g/dL (31.8-35.4); Mean Corpuscular Hemoglobin 29.7 pg (27.0-31.2); Mean Corpuscular Volume 87.3 fl (81-99); Monocytes # 0.4 K/mm3 (0.1-1.0); Monocytes % 6.2 % (1.7-9.3); Neutrophils # 3.8 K/mm3 (1.8-7.8); Neutrophils % 66.8 % (37.0-80.0); Platelet Count 267 K/mm3 (142-424); Red Blood Count 4.42 M/mm3 (4.20-5.40); Red Cell Distribution Width 14.5 % (11.5-17.5); White Blood Count 5.8 K/mm3 (4.8-10.8)
[2019-06-27 11:30] LABS: Alanine Aminotransferase 63 U/L (12-78); Albumin Level 4.2 g/dl (3.5-5.0); Albumin/Globulin Ratio 1.4 (1.1-1.8); Alkaline Phosphatase 86 U/L (38-126); Aspartate Amino Transferase 63 U/L (14-36); Bilirubin,Total 0.7 mg/dl (0.2-1.3); Blood Urea Nitrogen 18 mg/dl (7-17); Calcium 9.3 mg/dl (8.4-10.2); Carbon Dioxide 27 mmol/L (22.0-30.0); Chloride 100 mmol/L (98-107); Chol/HDL Ratio 4.7 (1-3.5); Cholesterol 155 mg/dl (140-200); Estimated Glomerular Filt Rate 96 ml/min (>60); GFR (African American) 117 ML/MIN (>60); Globulin 2.9 g/dL (1.3-3.2); Glucose 219 mg/dl (74-100); HDL Cholesterol 33 mg/dl (40-60); Iron 67 ug/dL (37-170); Magnesium 1.5 mg/dl (1.6-2.3); Phosphorous 3.5 mg/dl (2.5-4.5); Sodium 138 mmol/L (136-145); Total Protein,Serum 7.1 g/dl (6.3-8.2); Triglycerides 150 mg/dl (30-150); VLDL Cholesterol 30 mg/dL (0-40)
[2019-06-27 11:40] LABS: Direct LDL Cholesterol 115.25 mg/dL (100-129)
[2019-06-27 12:25] LABS: Anion Gap 15.5 mEq/L (5-15); Potassium 4.5 mmoL/L (3.5-5.1)
[2019-06-27 13:12] LABS: Ferritin 40.6 ng/ml (6.24-137)
[2019-06-27 13:36] LABS: Hemoglobin A1C 8.2 % (4.0-6.0)
[2019-06-27 14:18] LABS: Thyroid Stimulating Hormone 1.85 uIU/mL (0.465-4.68)
[2019-06-28 15:44] LABS: Folate 6.5 ng/mL (>3.0); Parathyroid Hormone Intact 57 pg/mL (15-65); Prealbumin 21 mg/dL (14-35); Vitamin D 25 Hydroxy 17.5 ng/mL (30.0-100.0)
[2019-06-29 22:39] LABS: Methylmalonic Acid 90 nmol/L (0-378)
[2019-07-01 14:05] LABS: Vitamin B1 120.6 nmol/L (66.5-200.0)
[2019-07-02 12:24] LABS: Vitamin E Alpha Tocopherol 8.8 mg/L (5.9-19.4)
[2019-07-05 11:22] LABS: Vitamin A 43.8 ug/dL (18.9-57.3); Vitamin E Gamma Tocopherol 2.9 mg/L (0.7-4.9)
[2019-07-06 06:53] LABS: Cotinine 36.3 ng/mL (.); Nicotine 80.5 ng/mL (.)
== END ==
PROVIDERS: Visit Provider Physician Assistant
DX: R12 Heartburn (principal); M54.9 Dorsalgia, unspecified; E66.01 Morbid (severe) obesity due to excess calories; Z87.891 Personal history of nicotine dependence
CPT/HCPCS: 36415; 80053; 80061; 80323; 82131; 82652; 82728; 82746; 83036; 83540; 83735; 83970; 84100; 84134; 84425; 84443; 84446; 84590; 85025; G0480

== ENCOUNTER → 2019-07-01 13:12 | Outpatient (CLI) | payer OTHER, SELFPAY | PROVIDERS: PCP Family Medicine; Visit Provider Internal Medicine Sleep Medicine | DX: G47.33 Obstructive sleep apnea (adult) (pediatric) (principal) | CPT/HCPCS: 95806 ==

== ENCOUNTER → 2019-07-11 08:35 | Outpatient (CLI) | payer OTHER, SELFPAY ==
--- NOTE | 2019-07-11 08:36 | CA_ITS ---
APPROVED REPORT EXAM: Comprehensive 2D, Doppler, and color-flow Echocardiogram Machine Molder: Trisha Valencia RDCS Ht: 5 ft 1 in Wt: 267lbs BSA: 2.14 BP: 113/63 mmHg Indications: PRE-OP CLEARANCE BARIATRIC SURGERY,HTN,EX SMOKER,FAMILY HISTORY STRESS ECHO DONE Conclusion 1. The EKG portion of the exercise stress echo is negative for ischemia, patient has adequate exercise capacity achieved 7 mets of workload on treadmill, the blood pressure response to exercise was adequate. 2. No obvious echocardiographic evidence of segmental wall motion with exercise to suggest underlying ischemic heart disease, preserved left ventricular systolic function. 3. Normal exercise stress echo. Electronically signed by : Braxton Metz, 07/11/2019 15:43:57
--- NOTE | 2019-07-11 09:00 | CA_ITS ---
APPROVED REPORT Exam: Exercise Treadmill Technologist: Mouna York, Ht: 5 ft 1 in Wt: 33 lbs BSA: 0.88 m2 Indications: PreOp Clearance Medical History Medications: Omeprazole,,,,, Citalopram,,,,, Cardiac Risk Factors: FHX of CAD Stress Test Details Test: Manual Treadmill HR Resting HR: 89 bpm Max Heart Rate (APMHR): 187 bpm Max HR Achieved: 173 bpm Target HR (85% APMHR): 158 bpm % of APMHR: 92 BP Resting BP: 135/91 mmHg Max BP: 196/78 mmHg ECG Clinical Exercise duration: 04:34 min Highest Stage Achieved: Exercise capacity: 7.0 METs Stress ECG Conclusion No symptoms, No arrhythmias, Allowing for motion artifact the ST response is normal Normal GXT, Rest and stress scho images reported sep. Electronically signed by : Braxton Metz, 07/11/2019 15:38:16
== END ==
PROVIDERS: PCP Family Medicine; Visit Provider Physician Assistant
DX: Z01.810 Encounter for preprocedural cardiovascular examination (principal); Z82.49 Family history of ischemic heart disease and other diseases of the circulatory system; Z86.79 Personal history of other diseases of the circulatory system; Z86.32 Personal history of gestational diabetes; Z87.891 Personal history of nicotine dependence
CPT/HCPCS: 93017; 93350

== ENCOUNTER → 2019-09-23 09:49 | Outpatient (CLI) | payer OTHER, SELFPAY ==
[2019-09-23 13:17] LABS: Coronavirus 19 IgG Antibody Negative (Negative); Coronavirus 19 IgM Antibody Negative (Negative)
== END ==
PROVIDERS: Visit Provider Nurse Practitioner Family
DX: Z03.818 Encounter for observation for suspected exposure to other biological agents ruled out (principal)
CPT/HCPCS: 36415; 86328

== ENCOUNTER → 2019-09-23 20:06 | Outpatient (CLI) | payer OTHER, SELFPAY | PROVIDERS: PCP Family Medicine; Visit Provider Nurse Practitioner Family | DX: G47.33 Obstructive sleep apnea (adult) (pediatric) (principal); R06.83 Snoring; E66.9 Obesity, unspecified | CPT/HCPCS: 95810 ==

== ENCOUNTER 2020-01-07 07:07 | Emergency (ER) | payer OTHER, SELFPAY ==
[2020-01-07 07:10] VITALS: BP 144/93; PULSE 101; RESP 16; TEMP 36.5; O2SAT 97; BMI 50.4
--- NOTE | 2020-01-07 07:50 | HMH.EDEAR ---
ED Disposition Clinical Impression: Acute serous otitis media Qualifiers: Laterality: left Recurrence: not specified as recurrent Qualified Code(s): H65.02 - Acute serous otitis media, left ear Disposition: Home, Self-Care Condition on Discharge: Good Instructions: DI for Middle Ear Infection-Adult Additional Instructions: use meds and see ent and pcp for follow up Prescriptions: Loratadine [Claritin 10mg Tablet] 10 mg PO DAILY #10 tab Transmission Status: Pending to [id number] cephALEXin [Keflex 500mg Cap] 500 mg PO TID #30 cap Transmission Status: Pending to [id number] Referrals: Fish Jasmine MD [Primary Care Provider] - Mark Pate MD [Staff Physician] - - Critical Care Critical Care Time: No Attestation: On 01/07/20, the high probability of a clinically significant, sudden or life threatening deterioration of the following system(s) required my full and direct attention, intervention and personal management. The time I documented below is in addition to time spent performing reported procedures but includes the following listed in this critical care notation. Medical Decision Making - Medical Records Medical records reviewed: Yes: I reviewed the patient's medical records. - Sinan Inquiry Pt receiving controlled substance: No Vital Signs: 01/07/20 07:10 Temperature 97.7 F Temperature Source Oral Pulse Rate [Right Radial] 101 H Respiratory Rate 16 Blood Pressure [Right Arm] 144/93 H Blood Pressure Mean [Right Arm] 110 Blood Pressure Source [Right Arm] Automatic Cuff Blood Pressure Position [Right Arm] Sitting 02 Sat by Pulse Oximetry 97 Oxygen Delivery Method Room Air - Lab Data Lab results reviewed: Yes: I reviewed the patient's lab results. Ear HPI - General Chief complaint: Ear Stated complaint: possible bug in left ear Time Seen by Provider: 01/07/20 07:40 Mode of Arrival: Ambulatory Source of Information: Patient, Medical Record Limitations: No Limitations Description of Symptoms (Recalled from ER Triage Doc. by RN): Pt reports she thinks she has a bug in her L ear. Pt reports she feels like something is moving around in her ear and has pressure in her ear. - History of Present Illness HPI Narrative: lt ear pain and pressure which started today Complaint: ear pain Location: left ear Duration: intermittent Severity: moderate Discharge from ear: no Treatment prior to arrival: none - Related Data Home Medications Medication Instructions Recorded Confirmed Omeprazole 20 mg PO DAILY 12/04/18 01/07/20 ertugliflozin 15 mg tablet 15 mg PO DAILY tab 10/16/19 01/07/20 metformin 500 mg tablet 500 mg PO BID tab 10/16/19 01/07/20 Previous Rx's Medication Instructions Recorded Loratadine [Claritin 10mg 10 mg PO DAILY #10 tab 01/07/20 Tablet] cephALEXin [Keflex 500mg Cap] 500 mg PO TID #30 cap 01/07/20 Allergies Allergy/AdvReac Type Severity Reaction Status Date / Time No Known Allergies Allergy Verified 11/25/19 09:17 [facility] History - Hepatitis A Screen Drug use history?: No High risk sexual behaviors?: No History of sexually transmitted infection?: No Currently employed?: No Childcare worker?: No Do you have indoor plumbing?: Yes Do you have electricity?: Yes Attestation statement:: This patient has been screened for Hepatitis A risk factors. I have reviewed the patient's past medical history: Yes Medical History: Reports:: Anxiety, Diabetes Mellitus Type 2, Gastroesophageal Reflux Disease(GERD), Hypertension Denies:: Cancer, Depression, Diabetes Mellitus Type 1, MRSA Other Medical History: Reports: Other Comment: Gestational Diabetes Laterality Cases: Left: Other Other Surgeries: Yes: Appendectomy, , Tubal Ligation Amputation: No Fractures: No Comment: 3 C/S'S. LAP.APPY. LEFT EYE - Social History Smoking Status: Former smoker Tobacco Type: cigarettes # Packs/Day (cigarettes): 1 #Yrs smoked
[2020-01-07 08:01] VITALS: BP 147/99; PULSE 94; RESP 17; TEMP 36.5; O2SAT 99
== END 2020-01-07 08:02 | disposition home or self-care (01) ==
PROVIDERS: Emergency Provider Emergency Medicine; PCP Family Medicine
DX: H65.02 Acute serous otitis media, left ear (principal); E11.9 Type 2 diabetes mellitus without complications; Z79.84 Long term (current) use of oral hypoglycemic drugs; K21.9 Gastro-esophageal reflux disease without esophagitis; I10 Essential (primary) hypertension; Z87.891 Personal history of nicotine dependence; Z79.899 Other long term (current) drug therapy
CPT/HCPCS: 99281

== ENCOUNTER → 2021-04-12 17:32 | Outpatient (CLI) | payer OTHER, SELFPAY | PROVIDERS: Visit Provider Nurse Practitioner Family | DX: Z20.822 Contact with and (suspected) exposure to COVID-19 (principal) | CPT/HCPCS: C9803; U0003; U0005 ==

== ENCOUNTER → 2022-01-18 11:07 | Outpatient (CLI) | payer OTHER, SELFPAY ==
--- NOTE | 2022-01-18 11:11 | CA_ITS ---
FINAL REPORT TECHNIQUE: Color Doppler, duplex Doppler and compression sonography of the right lower extremity venous system was performed. CLINICAL HISTORY: right knee pain started 1 week ago. Right posterior calf pain today. No known trauma. Smoker, obesity, stands alot for work. FINDINGS: There is no evidence of deep venous thrombosis from the level of the groin to the calf. The veins are patent and compressible. There is an incidental finding of a moderate popliteal cyst. IMPRESSION: No evidence of deep venous thrombosis right lower extremity. Incidental finding of moderate popliteal cyst. Reviewed, Interpreted and Dictated by Samson Ge III, MD Transcribed by Lupe Sue Authenticated and [facility]
--- NOTE | 2022-01-18 11:41 | XR_ITS ---
FINAL REPORT CLINICAL HISTORY: KNEE PAIN, ACUTE FINDINGS: RIGHT KNEE 2 views of the right knee were obtained. There is no evidence of fracture or dislocation. The bony alignment is normal. The joint spaces are preserved. There is a moderate joint effusion. No localized soft tissue abnormality is identified. IMPRESSION: Moderate joint effusion with no acute abnormality identified. Reviewed, Interpreted and Dictated by Samson Ge III, MD Transcribed by Lupe Sue Authenticated and [facility]
== END ==
PROVIDERS: PCP Family Medicine; Visit Provider Family Medicine
DX: M25.561 Pain in right knee (principal); M79.604 Pain in right leg; M79.89 Other specified soft tissue disorders
CPT/HCPCS: 73560; 93971

== ENCOUNTER → 2022-12-30 06:48 | Outpatient (CLI) | payer OTHER, SELFPAY | PROVIDERS: PCP Student in an Organized Health Care Education/Training Program; Visit Provider Student in an Organized Health Care Education/Training Program | DX: S31.109A Unspecified open wound of abdominal wall, unspecified quadrant without penetration into peritoneal cavity, initial encounter (principal); T14.8XXA Other injury of unspecified body region, initial encounter; B96.89 Other specified bacterial agents as the cause of diseases classified elsewhere | CPT/HCPCS: 87070; 87077; 87186; 87205 ==

== ENCOUNTER 2023-05-16 14:53 | Outpatient (CLI) | payer OTHER, SELFPAY ==
--- NOTE | 2023-05-16 14:56 | US_ITS ---
PROCEDURE: US TRANSVAGINAL CLINICAL INDICATION: US TV IMAGING MANAGER for Menorrhagia COMPARISON: No exams were available for comparison FINDINGS: Transvaginal sonographic images of the pelvis were obtained. UTERUS: 11cm x 7cmx 6cm anteverted with a combined endometrial thickness of 10.7mm. Within the endometrium there appears to be some blood and active bleeding. There is a 0.8 cm nabothian cyst in the cervix. There are several smaller nabothian cysts present. A large fibroid is seen in the posterior uterus measuring 8.0 cm x 6.3 cm x 7.9 cm. LEFT OVARY: Is not visualized. RIGHT OVARY: 2.0 cmx 2.7 cmx2.5 cm with a volume of 7.02 mL. There are multiple small follicles within the right ovary. The largest measures 0.9 cm. Right ovary is seen and appears polycystic. Doppler flow is seen. There is no fluid in the cul-de-sac. IMPRESSION: 1. Anteverted uterus with a large posterior fibroid measuring 8 cm. There are several small nabothian cysts in the cervix. 2. Within the endometrium there appears to be active bleeding with some blood flow. 3. The left ovary is not visualized. The right ovary has a few small follicles. 4. No fluid in the cul-de-sac. Dictated by: Prashant Betancourt MD 05/17/2023 11:50 Prashant Betancourt MD in OV 05/17/2023 11:50
== END 2023-05-16 23:59 ==
LOC: RAD 14:53
PROVIDERS: PCP Family Medicine; Visit Provider Nurse Practitioner Obstetrics & Gynecology
DX: N92.0 Excessive and frequent menstruation with regular cycle (principal)
CPT/HCPCS: 76830

== ENCOUNTER 2024-12-27 07:54 | Outpatient (CLI) | payer BC, SELFPAY ==
[2024-12-27 08:14] LABS: Hematocrit 36.4 % (37.0-47.0); Hemoglobin 11.9 g/dL (12.2-16.2); Immature Granulocytes % 0.4 %; Mean Corpuscular HGB Conc 32.7 g/dL (31.8-35.4); Mean Corpuscular Hemoglobin 27.7 pg (27.0-31.2); Mean Corpuscular Volume 84.8 fl (81-99); Nucleated Red Blood Cells % 0 %; Platelet Count 220 K/mm3 (142-424); Red Blood Count 4.29 M/mm3 (4.20-5.40); Red Cell Distribution Width-SD 42.0 fL; White Blood Count 4.9 K/mm3 (4.8-10.8)
[2024-12-27 08:46] LABS: Alanine Aminotransferase 13 U/L (12-78); Alkaline Phosphatase 55 U/L (38-126); Aspartate Amino Transferase 24 U/L (14-36); Bilirubin,Total 0.7 mg/dl (0.2-1.3); Blood Urea Nitrogen 17 mg/dl (7-17); Carbon Dioxide 28 mmol/L (22.0-30.0); Cholesterol 166 mg/dl (140-200); Creatinine,Serum 0.70 mg/dl (0.52-1.04); Estimated Glomerular Filt Rate 93 ml/min (>60); GFR (African American) 113 ML/MIN (>60); Total Protein,Serum 6.7 g/dl (6.3-8.2); Triglycerides 68 mg/dl (30-150)
[2024-12-27 08:47] LABS: Calcium 8.5 mg/dl (8.4-10.2); Glucose 82 mg/dl (74-100); HDL Cholesterol 48 mg/dl (40-60); Iron 65 ug/dL (37-170)
[2024-12-27 08:56] LABS: Total Iron Binding Capacity 380 ug/dL (265-497)
[2024-12-27 08:57] LABS: Hemoglobin A1C 5.3 % (4.0-6.0)
[2024-12-27 09:05] LABS: Free T4 (Free Thyroxine) 0.85 ng/dl (0.78-2.19)
[2024-12-27 09:18] LABS: Thyroid Stimulating Hormone 1.45 uIU/mL (0.465-4.68)
[2024-12-27 09:22] LABS: Ferritin 5.38 ng/ml (6.24-137)
[2024-12-27 09:34] LABS: Albumin Level 3.8 g/dl (3.5-5.0); Albumin/Globulin Ratio 1.3 (1.1-1.8); Globulin 2.9 g/dL (1.3-3.2)
[2024-12-27 09:35] LABS: Anion Gap 8.1 mEq/L (5-15); Chloride 103 mmol/L (98-107); Potassium 4.1 mmoL/L (3.5-5.1); Sodium 135 mmol/L (136-145)
[2024-12-27 10:20] LABS: Vitamin B12 564 pg/mL (239-931)
[2024-12-27 11:44] LABS: Folate 3.00 ng/mL
== END 2024-12-27 23:59 | disposition home or self-care (01) ==
LOC: LAB 07:56
PROVIDERS: PCP Family Medicine; Visit Provider Family Medicine
DX: R53.83 Other fatigue (principal); Z98.84 Bariatric surgery status; Z68.39 Body mass index [BMI] 39.0-39.9, adult; Z87.898 Personal history of other specified conditions
CPT/HCPCS: 36415; 80053; 80061; 82043; 82570; 82607; 82728; 82746; 83036; 83540; 83550; 84439; 84443; 85025